=== PATIENT | female | born 1950 | race Caucasian/White ===

== ENCOUNTER 2016-03-30 18:22 | Emergency (ER) | payer OTHER ==
[~2016-03-30] VITALS: Ht 157.5 cm; Wt 77.2 kg
[~2016-03-30 18:22] MED LIST: ADVAIR 250/501 DISK IH; AMLODIPINE BES2.5 MG PO; BIOTIN 5000MCG PO; CENTRUM SILVER1 EAC4 PO; CHOLESTEROL; CIPRO500 MG PO; DIAZEPAM5 MG PO; ENDOCET 5-3251 EACH PO; METRONIDAZOLE500 MG PO; NAPROSYN500 MG PO; NAPROXEN500 MG PO; PERCOCET 5/31 TABLET PO; PRAVACHOL40 MG PO; PRAVASTATIN SOD40 MG PO; PREDNISONE10 MG PO; PREVACID15 MG PO; PROAIR HFA8.5 GM IH; SERTRALINE HCL50 MG PO; TRAZODONE HCL50 MG PO; ULTRAM50 MG PO; VALIUM5 MG PO; VENTOLIN HFA18 GM IH; VITAMIN D31000 UNIT PO
[2016-03-30 20:30] VITALS: BP 141/95
== END 2016-03-30 20:49 | disposition home or self-care (01) ==
LOC: EME 18:22
DX: S80.01XA Contusion of right knee, initial encounter (principal); W01.0XXA Fall on same level from slipping, tripping and stumbling without subsequent striking against object, initial encounter; Y92.480 Sidewalk as the place of occurrence of the external cause; I10 Essential (primary) hypertension; E78.5 Hyperlipidemia, unspecified
CPT/HCPCS: 73564; 99281; 99284

== ENCOUNTER 2016-12-03 15:59 | Emergency (ER) | payer SELFPAY ==
[~2016-12-03] VITALS: Ht 160 cm; Wt 93.4 kg
[2016-12-03] MEDS ORDERED: LIDODERM 5% P1 PATCH TD (17:12)
[2016-12-03] MEDS ORDERED: MEDROL DOSEPAK4 MG PO (17:12)
[2016-12-03] MEDS ORDERED: FLEXERIL10 MG PO (17:12)
[2016-12-03] MEDS ORDERED: ULTRAM50 MG PO (17:12)
[2016-12-03 17:27] VITALS: BP 147/70
== END 2016-12-03 17:29 | disposition home or self-care (01) ==
LOC: EME 15:59
DX: M54.41 Lumbago with sciatica, right side (principal); M70.71 Other bursitis of hip, right hip
CPT/HCPCS: 73502; 99281; 99283; J1885

== ENCOUNTER 2017-07-30 23:01 | Emergency (ER) | payer OTHER ==
[~2017-07-30] VITALS: Ht 160 cm; Wt 93.6 kg
[~2017-07-30 23:01] MED LIST changes: +FLEXERIL10 MG PO; +LIDODERM 5% P1 PATCH TD; +MEDROL DOSEPAK4 MG PO
[2017-07-30 23:40] LABS: HEMATOCRIT 42.6 % (36.0-46.0); HEMOGLOBIN 14.9 G/DL (11.9-15.5); MCV 91.4 FL (83-99); PLATELET COUNT 374 K/uL (156-360); RBC DIS.WIDTH-CV 13.7 % (11.8-14.6); RBC DIS.WIDTH-SD 45.9 % (39-53); RED BLOOD COUNT 4.66 M/uL (3.80-5.20); WHITE BLOOD COUNT 18.5 K/uL (4.1-10.2)
[2017-07-30 23:49] LABS: CHLORIDE 109 mEq/L (99-109); SODIUM 142 mEq/L (136-147)
[2017-07-30 23:50] LABS: GLUCOSE 155 mg/dL (70-99)
[2017-07-30 23:54] LABS: CREATININE 1.4 mg/dL (0.6-1.3); GFR ESTIMATE (CALCULATED) 40 mL/min/
[2017-07-30 23:55] LABS: UREA NITROGEN (BUN) 29 mg/dL (9-23)
[2017-07-31] LABS: TROP-I INTERPRETATION NEGATIVE; TROPONIN-I < 0.01 ng/mL (0.0-0.30)
[2017-07-31] MEDS ORDERED: ZITHROMAX Z-PA250 MG PO (01:46)
[2017-07-31] MEDS ORDERED: DUONEB 2.5-0.5 M3 ML AEROSOL (01:46)
[2017-07-31 02:00] VITALS: BP 128/75
== END 2017-07-31 02:00 | disposition home or self-care (01) ==
LOC: EME 23:01
DX: J20.9 Acute bronchitis, unspecified (principal); J45.909 Unspecified asthma, uncomplicated; Z79.51 Long term (current) use of inhaled steroids; E78.5 Hyperlipidemia, unspecified; G43.909 Migraine, unspecified, not intractable, without status migrainosus; F31.9 Bipolar disorder, unspecified; F41.9 Anxiety disorder, unspecified; F32.9 Major depressive disorder, single episode, unspecified; Z87.891 Personal history of nicotine dependence; Z88.0 Allergy status to penicillin
CPT/HCPCS: 71046; 80048; 84484; 85027; 93005; 94640; 94640 76; 99281; 99285